=== PATIENT | male | born 1960 | race Caucasian/White ===

== ENCOUNTER 2018-03-07 03:23 | Emergency (ER) | payer OTHER ==
[2018-03-07 03:40] VITALS: BP 167/101
--- NOTE | 2018-03-07 04:00 | EDM.PDOC ---
ED HPI GENERAL MEDICAL PROBLEM - General Chief Complaint: General Stated Complaint: CHILLS/FEVER Time Seen by Provider: 03/07/18 03:40 Source of Information: Reports: Patient, Family History Limitations: Reports: No Limitations - History of Present Illness INITIAL COMMENTS - FREE TEXT/NARRATIVE: 57-year-old male developed fevers and chills tonight so came in to be seen. He' s had an upper respiratory infection with intermittent low-grade fevers for the past 2-3 days, tonight he started coughing and it has worked its way "into his lungs". This happens once yearly and his doctor treats him with antibiotics and he improves. He is otherwise healthy. He has had a sore throat and some nasal congestion, no nausea or vomiting, no shortness of breath, no diarrhea, no urinary symptoms, no bug bites or rashes. Denies joint pains. Tonight he was shaking so hard he couldn't tie his shoes so he came in. Onset: Gradual Severity: Moderate Associated Symptoms: Reports: Cough, Fever/Chills, Other (Sore throat and nasal congestion). Denies: Headaches, Nausea/Vomiting, Shortness of Breath Generalized Pain Score (Numeric/FACES): 6 - Related Data Allergies Allergy/AdvReac Type Severity Reaction Status Date / Time oxycodone HCl Allergy Anaphylactic Verified 05/21/16 16:11 [From OxyContin] Shock Home Meds: Home Meds Aspirin [Lo-Dose Aspirin EC] 81 mg PO DAILY 05/21/16 [History] Past Medical History - Past Health History Medical/Surgical History: Denies Medical/Surgical History Cardiovascular History: Reports: Hypertension Musculoskeletal History: Reports: Fracture Other Musculoskeletal History: ribs Oncologic (Cancer) History: Reports: Other (See Below) Other Oncologic History: skin cancer Dermatologic History: Reports: Other (See Below) Other Dermatologic History: basil cell ca - Infectious Disease History Infectious Disease History: Reports: Chicken Pox - Past Surgical History GI Surgical History: Reports: Appendectomy Musculoskeletal Surgical History: Reports: Other (See Below) Social & Family History - Tobacco Use Smoking Status *Q: Never Smoker - Caffeine Use Caffeine Use: Reports: Coffee, Soda, Tea - Recreational Drug Use Recreational Drug Use: No ED ROS GENERAL - Review of Systems Review Of Systems: See Below Constitutional: Reports: Fever, Chills, Malaise HEENT: Reports: Sinus Problem, Throat Pain. Denies: Ear Pain Respiratory: Reports: Cough. Denies: Shortness of Breath Cardiovascular: Denies: Chest Pain GI/Abdominal: Denies: Abdominal Pain, Nausea, Vomiting : Reports: No Symptoms Skin: Denies: Rash Neurological: Denies: Headache Psychiatric: Reports: No Symptoms ED EXAM, GENERAL - Physical Exam Exam: See Below Exam Limited By: No Limitations General Appearance: Alert, No Apparent Distress Eye Exam: Bilateral Eye: Normal Inspection (No jaundice, normal hydration) Throat/Mouth: Other (Pharyngeal erythema) Neck: No: Lymphadenopathy (R), Lymphadenopathy (L) Respiratory/Chest: No Respiratory Distress, Lungs Clear Cardiovascular: Regular Rate, Rhythm Neurological: Alert, Oriented Psychiatric: Normal Affect, Normal Mood Skin Exam: Warm, Dry. No: Rash Course - Vital Signs Last Recorded V/S: Last Vital Signs Temp 101.2 F H 03/07/18 03:37 Pulse 71 03/07/18 03:37 Resp 18 03/07/18 03:37 BP 167/101 H 03/07/18 03:37 Pulse Ox 97 03/07/18 03:37 - Orders/Labs/Meds Orders: Active Orders 24 hr Category Date Time Status CULTURE STREP A CONFIRMATION [] Routine Lab 03/07/18 03:53 Results STREP SCRN A RAPID W CULT CONF [] Routine Lab 03/07/18 03:53 Ordered - Re-Assessments/Exams Free Text/Narrative Re-Assessment/Exam: 03/07/18 03:59 A rapid strep was obtained. Discussed with the patient if his strep is positive we'll treat him with penicillin based antibiotics, if negative we can consider Zithromax to cover atypicals. I did impress upon him that it may be viral. 03/07/18 04:32 Strep was negative so patient will be treated with Zithromax. He'll return if worsening. Departure - Departure Time of Disposition: 04:40 Disposition: Home, Self-Care 01 Condition: Good Clinical Impression: Bronchitis - Discharge Information Instructions: Upper Respiratory Infection, Adult, [id number] Referrals: PCP,None [Primary Care Provider] - Forms: ED Department Discharge Care Plan Goals: Take antibiotic as directed, rest and fluids will be beneficial. Ibuprofen or naproxen for pain and fever as needed and return if worsening such as shortness of breath. - My Orders Last 24 Hours: My Active Orders 03/07/18 03:53 CULTURE STREP A CONFIRMATION [RM] Routine STREP SCRN A RAPID W CULT CONF [RM] Routine - Assessment/Plan Last 24 Hours: My Active Orders 03/07/18 03:53 CULTURE STREP A CONFIRMATION [RM] Routine STREP SCRN A RAPID W CULT CONF [RM] Routine
== END 2018-03-07 04:40 | disposition home or self-care (01) ==
LOC: JP.ED 03:23
DX: J40 Bronchitis, not specified as acute or chronic (principal); I10 Essential (primary) hypertension; Z88.5 Allergy status to narcotic agent; Z79.82 Long term (current) use of aspirin
CPT/HCPCS: 87081; 87430; 99284

== ENCOUNTER 2025-02-03 09:21 | Day surgery (SDC) | payer OTHER ==
[2025-02-03] MEDS ORDERED: ceFAZolin 2 GM in Premix Bag 1 BAG IV ONE (10:00)
[2025-02-03] MEDS: Lactated Ringers 1,000 ML IV SCH (10:17)
[2025-02-03] MEDS ORDERED: fentaNYL 100 MCG/2 ML SDV ONE (10:24)
[2025-02-03] MEDS ORDERED: Propofol 200 MG/20 ML SDV ONE ×4 (10:24→12:14)
[2025-02-03] MEDS ORDERED: Midazolam 1 MG/ML 2 ML SDV ONE (10:24)
[2025-02-03] MEDS ORDERED: Ketorolac 30 MG/ML SDV ONE (10:56)
[2025-02-03] MEDS: Bupivacaine 0.5% 50 ML MDV ONE (12:16)
[2025-02-03] MEDS: Lidocaine 1% with EPINEPHrine 1:100,000 50 ML MDV ONE (12:16)
[2025-02-03 13:48] VITALS: BP 123/88; PULSE 68
== END 2025-02-03 13:52 | disposition home or self-care (01) ==
LOC: JP.SDS 09:21
PROVIDERS: ATTEND Surgery
DX: D17.21 Benign lipomatous neoplasm of skin and subcutaneous tissue of right arm (principal); D17.22 Benign lipomatous neoplasm of skin and subcutaneous tissue of left arm; Z88.8 Allergy status to other drugs, medicaments and biological substances
CPT/HCPCS: 00400; 24071; 25071; J0665; J1885; J2250; J2704; J3010; J7120

== ENCOUNTER 2025-03-12 07:40 | Day surgery (SDC) | payer OTHER ==
[2025-03-12] MEDS: Lactated Ringers 1,000 ML IV SCH (08:33)
[2025-03-12] MEDS ORDERED: fentaNYL 50 MCG/ML SDV ONE (08:36)
[2025-03-12] MEDS ORDERED: Midazolam 1 MG/ML 2 ML SDV ONE (08:36)
[2025-03-12] MEDS ORDERED: Propofol 200 MG/20 ML SDV ONE ×2 (08:36→09:57)
[2025-03-12 10:56] VITALS: BP 116/65; PULSE 55
== END 2025-03-12 11:24 | disposition home or self-care (01) ==
LOC: JP.SDS 07:40
PROVIDERS: ATTEND Surgery
DX: Z12.11 Encounter for screening for malignant neoplasm of colon (principal); D12.2 Benign neoplasm of ascending colon; D12.5 Benign neoplasm of sigmoid colon; I10 Essential (primary) hypertension; E66.9 Obesity, unspecified; Z88.5 Allergy status to narcotic agent
CPT/HCPCS: 00811; 45380; 45385; J2250; J2704; J3010; J7120